=== PATIENT | female | born 1940 | race Caucasian/White ===

== ENCOUNTER 2020-04-13 09:47 | Emergency (ER) | payer OTHER, MEDICARE ==
[~2020-04-13] VITALS: Ht 152.4 cm; Wt 56.2 kg
[2020-04-13 09:50] VITALS: BP_SYST 206
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
--- NOTE | 2020-04-13 09:58 | NUR ---
MAXIMO Lema at bedside examining patient.
[2020-04-13] MEDS ORDERED: BACITRACIN 1 GM OINT TP ONE (10:00)
[2020-04-13] MEDS ORDERED: IBUPROFEN 400 MG TABLET PO ONE (10:00)
[2020-04-13] MEDS ORDERED: CYCLOBENZAPRINE HCL 10 MG TABLET (FLEXERIL) PO ONE (10:00)
--- NOTE | 2020-04-13 10:09 | NUR ---
Medicated per MD orders. PT ambulatory to hallway ch2 with steady gait.
--- NOTE | 2020-04-13 10:18 | NUR ---
Off unit for xray via w/c
[2020-04-13] MEDS ORDERED: cloNIDine HCL 0.1 MG TABLET PO ONE (11:15)
--- NOTE | 2020-04-13 11:20 | NUR ---
Dr Lema notified pt BP elevated, per Dr Lema, L patient can be discharge at this time and notified patient to take second dose of blood pressure medication at home, pt agreeable.
[2020-04-13 11:32] VITALS: BP_SYST 191
--- NOTE | 2020-04-13 11:34 | NUR ---
Patient given written and verbal discharge instructions and verbalizes understanding. ER MD discussed with patient the results and treatment provided. Patient in stable condition. ID arm band removed. Rx of flexeril and Naproxen given. Patient educated on pain management and to follow up with PMD. Pain Scale 2/10. Opportunity for questions provided and answered. Medication side effect fact sheet provided.
== END 2020-04-13 11:32 | disposition home or self-care (01) ==
LOC: SED 09:47
DX: S50.811A Abrasion of right forearm, initial encounter (principal); R07.89 Other chest pain; I10 Essential (primary) hypertension; Z88.1 Allergy status to other antibiotic agents; V49.9XXA Car occupant (driver) (passenger) injured in unspecified traffic accident, initial encounter; Y93.89 Activity, other specified; Y92.413 State road as the place of occurrence of the external cause; Y99.8 Other external cause status
CPT/HCPCS: 71045; 71110; 99284